=== PATIENT | female | born 1995 | race Caucasian/White ===

== ENCOUNTER 2017-09-21 21:12 | Inpatient (IN) | payer MEDICAID ==
[~2017-09-21] VITALS: Ht 154.9 cm; Wt 72.6 kg
[2017-09-21] MEDS ORDERED: OXYTOCIN 20 UNITS in LACTATED RINGERS 1,000 ML IV SCH (22:02)
[2017-09-21] MEDS ORDERED: METHYLERGONOVINE 0.2 MG/ML AMP IM PRN (22:05)
[2017-09-21] MEDS ORDERED: PROMETHAZINE 25 MG/ML VIAL IVP PRN (22:05)
[2017-09-21] MEDS ORDERED: NALBUPHINE 10 MG/ML AMP IVP PRN (22:05)
[2017-09-21] MEDS ORDERED: CARBOPROST 250 MCG/ML AMP IM PRN (22:05)
[2017-09-21] MEDS ORDERED: IBUPROFEN 800 MG TAB PO PRN (22:05)
[2017-09-21] MEDS ORDERED: PREN-546 PO (22:10)
[2017-09-21] MEDS: LACTATED RINGERS 1,000 ML IV SCH ×2 (22:26→23:00)
[2017-09-21 22:31] VITALS: BP 130/75
[2017-09-21] MEDS ORDERED: BUPIVACAINE 0.125%/NS PREMIX 250 ML ONE (22:48)
[2017-09-21] MEDS ORDERED: BUPIVACAINE 0.125%/NS PREMIX 250 ML EPI SCH (23:10)
[2017-09-21] MEDS ORDERED: OXYTOCIN 20 UNITS/LR PREMIX 1,000 ML IV ONE (23:15)
[2017-09-21 23:17] LABS: BASOPHILS # (AUTO) 0.1 K/uL (0.00-0.22); BASOPHILS % (AUTO) 1.4 % (0.0-2.0); EOSINOPHILS # (AUTO) 0.1 K/uL (0-0.4); EOSINOPHILS % (AUTO) 0.6 % (0.0-4.0); HEMATOCRIT 34.1 % (36-48); HEMOGLOBIN 11.2 g/dL (12.0-16.0); LYMPHOCYTES # (AUTO) 2.4 K/uL (2.5-16.5); LYMPHOCYTES % (AUTO) 28.8 % (20.5-51.1); MEAN CORPUSCULAR HEMOGLOBIN 28 pg (27-31); MEAN CORPUSCULAR HGB CONC 33 g/dL (33-37); MEAN CORPUSCULAR VOLUME 85 fL (80-94); MONOCYTES # (AUTO) 0.4 K/uL (0.8-1.0); MONOCYTES % (AUTO) 4.8 % (1.7-9.3); NEUTROPHILS # (AUTO) 5.4 K/uL (1.8-7.7); NEUTROPHILS % (AUTO) 64.4 % (42.2-75.2); PLATELET COUNT (AUTO) 239 K/uL (140-450); RED BLOOD CELL COUNT(AUTO) 4.02 MIL/uL (4.20-5.40); RED CELL DISTRIBUTION WIDTH 13.6 % (11.6-13.7); WHITE BLOOD COUNT (AUTO) 8.4 K/uL (4.8-10.8)
[2017-09-21 23:30] LABS: APPEARANCE,URINE CLEAR (CLEAR); BILIRUBIN,URINE NEGATIVE (NEGATIVE); BLOOD, URINE 2+ (NEGATIVE); COLOR,URINE YELLOW (YELLOW); LEUKOCYTE ESTERASE ,URINE TRACE (NEGATIVE); NITRITE, URINE NEGATIVE (NEGATIVE); PH,URINE 6.5 (5.0-9.0); UGLUCOSE NEGATIVE (NEGATIVE)
[2017-09-21 23:46] LABS: ALBUMIN 2.6 g/dL (3.4-5.0); CARBON DIOXIDE 23.6 mmol/L (21-32); CREATININE 0.6 mg/dL (0.6-1.3); POTASSIUM 3.6 mmol/L (3.5-5.1); TOTAL BILIRUBIN 0.4 mg/dL (0.0-1.0)
[2017-09-21 23:57] LABS: RBC,URINE 3-10 (FEW) /HPF (0-5)
[2017-09-21 23:58] LABS: WBC,URINE 0-5 (RARE) /HPF (0-5)
[2017-09-22] MEDS ORDERED: AMPICILLIN 2,000 MG VIAL ONE (03:10)
[2017-09-22] MEDS ORDERED: AMPICILLIN 2,000 MG in NACL 0.9% 100 ML IV SCH (03:30)
[2017-09-22] MEDS ORDERED: OXYTOCIN 10 UNITS/ML VIAL IM SCH (04:00)
[2017-09-22] MEDS ORDERED: OXYTOCIN 10 UNITS/ML VIAL ONE (05:12)
[2017-09-22] MEDS ORDERED: TEMAZEPAM 15 MG CAP PO PRN (05:25)
[2017-09-22] MEDS ORDERED: IBUPROFEN 800 MG TAB PO PRN (05:25)
[2017-09-22] MEDS ORDERED: OXYTOCIN 10 UNITS/ML VIAL IM PRN (05:25)
[2017-09-22] MEDS ORDERED: METHYLERGONOVINE 0.2 MG/ML AMP IM PRN (05:25)
[2017-09-22] MEDS ORDERED: oxyCODONE/APAP 5/325 MG 1 TAB TAB PO PRN (05:25)
[2017-09-22] MEDS ORDERED: MEASLES, MUMPS, AND RUBELLA 1 VIAL SQVAC PRN (05:25)
[2017-09-22] MEDS ORDERED: HYDROcodone/APAP 5/325 MG 1 TAB TAB PO PRN (05:25)
[2017-09-22] MEDS ORDERED: BENZOCAINE/MENTHOL 20%-0.5% 60 GM CAN TP PRN (05:25)
[2017-09-22] MEDS ORDERED: IBUPROFEN 800 MG TAB ONE ×2 (06:00→06:02)
--- NOTE | 2017-09-22 06:43 | NUR ---
PATIENT HAS BEEN SCREENED AND CATEGORIZED LOW NUTRITION RISK. PATIENT WILL BE SEEN WITHIN 7 DAYS OF ADMISSION. 09/27/17 CHANNING OSUNA MS, RDN
[2017-09-22] MEDS ORDERED: AMPICILLIN 1,000 MG in NACL 0.9% 50 ML IV SCH (07:30)
[2017-09-22] MEDS ORDERED: DOCUSATE SOD/SENNA 50/8.6 MG 1 TAB PO SCH (21:00)
[2017-09-22] MEDS ORDERED: INFLUENZA VIRUS VACCINE QUAD 0.5 ML SYR IMVAC SCH (22:00)
[2017-09-23 06:18] LABS: HEMATOCRIT 27.5 % (36-48)
[2017-09-23] MEDS ORDERED: IBUP-2213 PO (10:23)
== END 2017-09-23 15:50 | disposition home or self-care (01) | DRG 560 ==
LOC: MLD 21:12 → OBSVTOIN 22:02 → MFCC 09-22 08:10
PROVIDERS: ADMIT Obstetrics & Gynecology; ATTEND Obstetrics & Gynecology
PROC: 10E0XZZ Delivery of Products of Conception, External Approach (ICD-10-PCS; principal; 2017-09-22)
PROC: 0KQM0ZZ Repair Perineum Muscle, Open Approach (ICD-10-PCS; 2017-09-22)
PROC: 00HU33Z Insertion of Infusion Device into Spinal Canal, Percutaneous Approach (ICD-10-PCS; 2017-09-22)
PROC: 3E0R3BZ Introduction of Anesthetic Agent into Spinal Canal, Percutaneous Approach (ICD-10-PCS; 2017-09-22)
PROC: 3E0234Z Introduction of Serum, Toxoid and Vaccine into Muscle, Percutaneous Approach (ICD-10-PCS; 2017-09-23)
DX: O70.1 Second degree perineal laceration during delivery (principal); Z23 Encounter for immunization; Z37.0 Single live birth; Z3A.39 39 weeks gestation of pregnancy; Z83.3 Family history of diabetes mellitus
CPT/HCPCS: 36415; 51702; 59409; 80053; 81001; 85018; 85025; 86592; 86886; 86900; 86901; 90715; G0378; J0290; J2590; J3490; J7120